=== PATIENT | male | born 1985 | race American Indian/Alaskan Native ===

== ENCOUNTER 2019-04-13 15:00 | Emergency (ER) | payer SELFPAY ==
[2019-04-13 15:09] VITALS: BP 124/86
--- NOTE | 2019-04-13 15:16 | Emergency Department Report ---
Chief Complaint: Medical Clearance Stated Complaint: POSS STD Time Seen by Provider: 04/13/19 15:06 - HPI History of Present Illness: 33 y o male presents stating his partner was told she has a bacterila vaginosis everytime they have sex opt presenting and wanting to get tested denies all symptoms - ROS Review of Systems: as noted in HPI all systems reviewed and negative - Exam Vital Signs: Vital Signs 04/13/19 15:07 Temperature 99.5 F Pulse Rate 94 H Respiratory 18 Rate Blood Pressure 124/86 O2 Sat by Pulse 99 Oximetry Physical Exam: Gen: AAO x 3 MSE screening note: Focused history and physical exam performed. Due to findings the following was ordered: ED Medical Decision Making - Medical Decision Making 33 y o male presents to for STD concerns Discussed f/u with [facility] no acute Distress ED Disposition for MSE Clinical Impression: Screen for STD (sexually transmitted disease) Disposition: MED SCREENING EXAM-LEFT Is pt being admited?: No Does the pt Need Aspirin: No Condition: Stable Instructions: Sexually Transmitted Diseases in Adolescents (ED) Additional Instructions: follow up with [facility] for STD screening Referrals: [facility] [Outside] - 3-5 Days [facility] [place] [Outside] - 3-5 Days Time of Disposition: 15:15
== END 2019-04-13 15:44 | disposition left against medical advice (07) ==
LOC: ED 15:00
DX: A64 Unspecified sexually transmitted disease (principal); Z53.21 Procedure and treatment not carried out due to patient leaving prior to being seen by health care provider